=== PATIENT | female | born 1990 | race Caucasian/White ===

== ENCOUNTER 2017-03-12 00:36 | Emergency (ER) | payer BC, MEDICAID ==
[~2017-03-12] VITALS: Ht 162.6 cm; Wt 90.0 kg
[2017-03-12 00:44] VITALS: Ht 162.6 cm; Wt 90.0 kg
[2017-03-12] MEDS ORDERED: HYDROCODONE/APAP (10/325) TAB PO ONE (01:30)
[2017-03-12] MEDS ORDERED: LIDOCAINE 2% JELLY 5 ML TOP ONE (01:30)
--- NOTE | 2017-03-12 01:53 | ERD ---
ER Documentation Chief Complaint Date/Time DATE: 03/12/17 TIME: 01:41 Chief Complaint bug in left ear HPI 26-year-old female foreign body insect on the left ear, when inside her ear tonight. Patient's complaint of pain, sharp pain, 6/10 scale, is worse upon movement of the insect. Patient denies any ear discharge. Patient denies any problems with hearing. ROS All systems reviewed and are negative except as per history of present illness. Medications Home Meds Reported Medications [none] Unknown Strength No Conflict Check 03/12/17 Allergies Allergies: Coded Allergies: No Known Allergy (Verified Allergy, Unknown, 04/25/08) PMhx/Soc Medical and Surgical Hx: pt denies Medical Hx, pt denies Surgical Hx History of Surgery: No Anesthesia Reaction: No Hx Neurological Disorder: No Hx Respiratory Disorders: No Hx Cardiac Disorders: No Hx Psychiatric Problems: No Hx Miscellaneous Medical Probl: No Hx Alcohol Use: No Hx Substance Use: No Hx Tobacco Use: No Smoking Status: Never smoker FmHx Family History: No coronary disease, No diabetes, No other Physical Exam Vitals Vital Signs Date Time Temp Pulse Resp B/P Pulse Ox O2 Delivery O2 Flow Rate FiO2 03/12/17 00:44 98.4 97 20 159/94 100 Physical Exam GENERAL: The patient is well developed and appropriate for usual state of health, in no apparent distress. HEENT: Atraumatic. Ears: Normal tympanic membrane, no erythema or bulging. No ear canal swelling. No ear discharge. Left ear canal noted to have a foreign body, insect in the left ear canal. Nose: normal nasal turbinates, no erythema or swelling. Normal nasal discharge. Throat: oropharynx clear. No tonsillar swelling or tonsillar exudates. No lymphadenopathy. CHEST: Clear to auscultation bilaterally. There are no rales, wheezes or rhonchi. HEART: Regular rate and rhythm. No murmurs, clicks, rubs or gallops. No S3 or S4. ABDOMEN: Soft, nontender and nondistended. Good bowel sounds. No rebound or guarding. No gross peritonitis. No gross organomegaly or masses. No Mckeon sign or McBurney point tenderness. BACK: No midline or flank tenderness. EXTREMITIES: Equal pulses bilaterally. There is no peripheral clubbing, cyanosis or edema. No focal swelling or erythema. Full range of motion. Grossly neurovascularly intact. NEURO: Alert and oriented. Cranial nerves 2-12 intact. Motor strength in all 4 extremities with 5/5 strength. Sensation grossly intact. Normal speech and gait. SKIN: There is no apparent rash or petechia. The skin is warm and dry. HEMATOLOGIC AND LYMPHATIC: There is no evidence of excessive bruising or lymphedema. No gross cervical, axillary, or inguinal lymphadenopathy. Results 24 hrs Current Medications Medications (Trade) Dose Ordered Sig/Petros Route PRN Reason Start Time Stop Time Status Last Admin Dose Admin Acetaminophen/ Hydrocodone Bitart (Ryan (10/325)) 1 tab ONCE ONCE PO 03/12/17 01:30 03/12/17 01:32 DC Lidocaine (Xylocaine 2% Jelly) 1 applic ONCE ONCE TOP 03/12/17 01:30 03/12/17 01:32 DC 03/12/17 01:58 Patient was given medication for pain here in emergency department, after treatment, patient verbalized feeling much better. Patient's pain is improved. Procedures/MDM Procedure note: After patient's verbal consent, the left ear canal is lavage using diluted hydrogen peroxide with normal saline. After procedure, patient left ear was cleaned, insect noted, was removed using a lavage and alligator forceps, no other foreign body noted afterwards. Patient tolerated procedure well. No TM perforation noted. No cerumen impaction noted afterwards. Medical decision making: Patient is a foreign body in the left ear canal, this is removed without any difficulty. Patient was given Corticosporin otic drops to prevent infection of the affected area. Patient was advised to return to emergency department for worsening symptoms. Follow up with primary care doctor in 2-3 days for reevaluation of symptoms. Disposition: Home. Stable Departure Diagnosis: Primary Impression: Foreign body in left ear Encounter type: initial encounter Qualified Code: T16.2XXA - Foreign body in left ear, initial encounter Condition: Stable Patient Instructions: Foreign Body, Ear Canal (Removed) JULIO CESAR ZHENG NP Mar 12, 2017 01:52
[2017-03-12] MEDS ORDERED: NPH10OT LEFT EAR (03:12)
== END 2017-03-12 03:27 | disposition home or self-care (01) ==
LOC: FTE 00:36
DX: T16.2XXA Foreign body in left ear, initial encounter (principal); X58.XXXA Exposure to other specified factors, initial encounter; Y92.9 Unspecified place or not applicable
CPT/HCPCS: 69200; 99283; Z7610